=== PATIENT | male | born 1990 | race Caucasian/White ===

== ENCOUNTER 2020-06-29 11:00 | Emergency (ER) | payer OTHER | END 2020-06-29 12:53 | disposition home or self-care (01) | LOC: JVIRT 11:00 | DX: U07.1 COVID-19 (principal) | CPT/HCPCS: C9803; Q3014-GT; U0003 ==

== ENCOUNTER 2020-07-11 13:13 | Emergency (ER) | payer OTHER | END 2020-07-11 13:28 | disposition home or self-care (01) | LOC: JVIRT 13:13 | DX: Z03.818 Encounter for observation for suspected exposure to other biological agents ruled out (principal) | CPT/HCPCS: C9803; G2012-GT; Q3014-GT; U0003 ==